=== PATIENT | female | born 1940 | race Native Hawaiian/Other Pacific Islander ===

== ENCOUNTER 2021-11-20 19:32 | Emergency (ER) | payer OTHER ==
[~2021-11-20] VITALS: Ht 157.5 cm; Wt 64.4 kg
[2021-11-20 19:36] VITALS: BP 186/67; TEMP 98.2
[2021-11-20 20:00] LABS: PLATELET COUNT 154 K/uL (152-353)
[2021-11-20 20:12] LABS: POTASSIUM 3.7 mmol/L (3.6-5.2)
[2021-11-21] MEDS ORDERED: QUETIAPINE100 MG PO (12:39)
[2021-11-21] MEDS ORDERED: DIVA125C PO (12:40)
[2021-11-21] MEDS ORDERED: LOSA50TA PO (12:40)
[2021-11-21] MEDS ORDERED: DOK100 MG PO (12:41)
[2021-11-21] MEDS ORDERED: NAMENDA10 MG PO (12:42)
[2021-11-21] MEDS ORDERED: MELATONIN3 M1 PO (12:42)
[2021-11-21] MEDS ORDERED: HALOPERIDOL2 MG PO (12:46)
== END 2021-11-20 20:45 | disposition still patient (30) ==
LOC: ED 19:32
PROVIDERS: Hospitalist
DX: F25.8 Other schizoaffective disorders (principal); R46.89 Other symptoms and signs involving appearance and behavior; Z11.52 Encounter for screening for COVID-19; Z04.6 Encounter for general psychiatric examination, requested by authority
CPT/HCPCS: 36415; 80053; 85027; 87635; 93005; 99283; U0003